=== PATIENT | male | born 1955 | race Caucasian/White ===

== ENCOUNTER 2023-10-12 15:41 | Inpatient (IN) | payer MEDICARE ==
[~2023-10-12] VITALS: Ht 188 cm; Wt 108.0 kg
[2023-10-12 20:00] VITALS: BP 133/82
[2023-10-12] MEDS ORDERED: LORazepam 1 MG TAB PO PRN (22:15)
[2023-10-12] MEDS ORDERED: Water, Sterile 10 ML VIAL IM PRN (22:15)
[2023-10-12] MEDS ORDERED: Ziprasidone Mesylate 20 MG VIAL IM PRN (22:15)
[2023-10-12] MEDS ORDERED: LORazepam 2 MG/ML VIAL IM PRN (22:15)
[2023-10-12] MEDS ORDERED: hydrOXYzine hydrochloride 50 MG/ML VIAL IM PRN (22:20)
[2023-10-12] MEDS ORDERED: hydrOXYzine pamoate 25 MG CAP PO PRN (22:20)
[2023-10-12] MEDS ORDERED: VITAMIN D31250 MC2 PO (22:22)
[2023-10-12] MEDS ORDERED: MUCINEX ER600 MG PO (22:26)
[2023-10-12] MEDS ORDERED: Ipratropium Brom3 ML INH (22:28)
[2023-10-12] MEDS ORDERED: LASIX80 MG PO (22:29)
[2023-10-12] MEDS ORDERED: Metolazone5 MG PO (22:32)
[2023-10-12] MEDS ORDERED: MIRALAX POWDER17 G1 PO (22:33)
[2023-10-12] MEDS ORDERED: POTASSIUM CHLO10 ME5 PO (22:37)
[2023-10-12] MEDS ORDERED: SENNA-PLUS TAB1 EACH PO (22:37)
[2023-10-12] MEDS ORDERED: HALOPERIDOL5 MG PO (22:38)
[2023-10-12] MEDS ORDERED: LIPITOR20 MG PO (22:39)
[2023-10-12] MEDS ORDERED: ARTIFICIAL TEAR30 M4 OP (22:41)
[2023-10-12] MEDS ORDERED: ACETAMINOPHEN 325 MG TAB PO PRN (23:20)
[2023-10-12] MEDS ORDERED: Magnesium Hydroxide 30 ML UDC PO PRN (23:20)
[2023-10-12] MEDS ORDERED: MG-AL HYDROXIDE/SIMETICONE 30 ML UDC PO PRN (23:20)
[2023-10-12] MEDS ORDERED: NICOTINE POLACRILEX 4 MG GUM PO PRN (23:25)
[2023-10-12] MEDS ORDERED: Menthol/Zinc Oxide 4 GM THIN T PRN (23:25)
[2023-10-13] MEDS ORDERED: Polyethylene Glycol 15 ML BOT OPH PRN (07:00)
[2023-10-13] MEDS ORDERED: Albuterol Sulf/Ipratropium 3 ML VIAL NEB PRN (07:00)
[2023-10-13 07:31] LABS: BASO % 0.4 % (0.0-1.0); EOS # 0.2 10*3/uL (0.0-0.4); EOS % 3.2 % (1.0-4.0); HEMATOCRIT 38.7 % (42.0-52.0); LYMPH # 1.3 10*3/uL (1.3-4.4); LYMPH % 17.7 % (27.0-41.0); MEAN CELL VOLUME 99.2 fl (80.0-94.0); MEAN CORPUSCULAR HGB 33.6 pg (27.0-31.0); MEAN CORPUSCULAR HGB CONC 33.9 g/dl (33.0-37.0); MEAN PLATELET VOLUME 10.4 fl (9.6-12.3); MONO # 0.8 10*3/uL (0.1-1.0); MONO % 11.6 % (3.0-9.0); NEUT # 4.8 10*3/uL (2.3-7.9); NEUT % 66.7 % (47.0-73.0); PLATELET COUNT AUTOMATED 215 10*3/uL (130-400); RED CELL DISTRI WIDTH 13.8 % (0-14.5); WHITE BLOOD COUNT 7.2 10*3/uL (4.8-10.8)
[2023-10-13 07:49] VITALS: BP 120/60
[2023-10-13] MEDS ORDERED: FUROSEMIDE 40 MG TAB PO SCH (09:00)
[2023-10-13] MEDS ORDERED: BENZTROPINE MESYLATE 1 MG TAB PO SCH (09:00)
[2023-10-13] MEDS ORDERED: RISPERIDONE 1 MG TAB PO SCH (09:00)
[2023-10-13] MEDS ORDERED: HALOPERIDOL 5 MG TAB PO SCH (09:00)
[2023-10-13] MEDS ORDERED: Vitamin D 1,000 IU TAB (25 MCG) PO SCH (09:00)
[2023-10-13] MEDS ORDERED: GUAIFENESIN 600 MG TAB ER PO SCH (09:00)
[2023-10-13] MEDS ORDERED: DIVALPROEX SODIUM 125 MG CAP PO SCH (09:00)
[2023-10-13] MEDS ORDERED: METOLAZONE 5 MG TAB PO SCH (09:00)
[2023-10-13 09:32] LABS: VITAMIN D, 25-HYDROXY 57.5 ng/mL (30-100)
[2023-10-13] MEDS ORDERED: POTASSIUM CHLORIDE 20 MEQ TAB PO SCH (10:00)
[2023-10-13 10:12] LABS: ALKALINE PHOSPHATASE 59 U/L (46-116); BUN 16 mg/dl (9-23); CHLORIDE 104 mmol/L (98-107); CHOLESTEROL 179 mg/dL (<200); LDL CHOLESTEROL 98 mg/dL (9-159); POTASSIUM 3.8 mmol/L (3.4-5.1); SGPT/ALT 7 U/L (5-49); TOTAL PROTEIN 6.2 gm/dL (6.0-8.0); TRIGLYCERIDES 70 mg/dl (<150); VALPROIC ACID (DEPAKENE) 7.9 ug/ml (50-100)
[2023-10-13] MEDS ORDERED: NYSTATIN 15 GM BOT T PRN (14:40)
[2023-10-13 19:19] VITALS: BP 122/77
[2023-10-13] MEDS ORDERED: ATORVASTATIN CALCIUM 20 MG TAB PO SCH (21:00)
[2023-10-14 08:00] VITALS: BP 129/89
[2023-10-14] MEDS ORDERED: VITAMIN E 400 IU CAP PO SCH (09:00)
[2023-10-14 19:26] VITALS: BP 102/57
[2023-10-14] MEDS ORDERED: LORazepam 1 MG TAB PO SCH (21:00)
[2023-10-15 08:00] VITALS: BP 90/62
[2023-10-15] MEDS ORDERED: HALOPERIDOL DECANOATE 50 MG/ML AMP IM ONE (10:05)
[2023-10-15] MEDS ORDERED: HALOPERIDOL DECANOATE 100 MG/ML AMP IM ONE (10:15)
[2023-10-15 13:31] VITALS: BP 122/64
[2023-10-15 20:00] VITALS: BP 113/65
[2023-10-16 08:29] VITALS: BP 120/84
[2023-10-16 20:00] VITALS: BP 120/78
[2023-10-16] MEDS ORDERED: Menthol/Zinc Oxide 4 GM THIN T SCH (21:00)
[2023-10-16] MEDS ORDERED: RAMELTEON 8 MG TAB PO SCH (21:00)
[2023-10-17 09:00] VITALS: BP 127/68
[2023-10-17 20:00] VITALS: BP 112/54
[2023-10-18 08:00] VITALS: BP 136/60
[2023-10-18] MEDS ORDERED: HALOPERIDOL DECANOATE 100 MG/ML AMP IM ONE (10:00)
[2023-10-18] MEDS ORDERED: HALOPERIDOL DECANOATE 50 MG/ML AMP IM ONE (10:20)
[2023-10-18 19:27] VITALS: BP 113/61
[2023-10-18] MEDS ORDERED: Magnesium Hydroxide 30 ML UDC PO SCH (22:00)
[2023-10-19 07:07] VITALS: BP 114/59
[2023-10-19 20:00] VITALS: BP 117/70
[2023-10-19] MEDS ORDERED: RAMELTEON 8 MG TAB PO SCH (21:00)
[2023-10-20 08:30] VITALS: BP 104/68
[2023-10-20 14:43] LABS: BILIRUBIN Negative (Negative); BLOOD Trace-Intact (Negative); CLARITY Clear (Clear); COLOR Yellow (Yellow); GLUCOSE Negative (Negative); KETONE Negative (Negative); LEUKO ESTERASE Negative (Negative); NITRITE Negative (Negative); UROBILINOGEN 0.2 E.U./dl (0.0-1.0)
[2023-10-20 15:13] LABS: BACTERIA TRACE; WBC 0-2 wbc/hpf (0-5)
[2023-10-20 20:00] VITALS: BP 98/61
[2023-10-21 08:00] VITALS: BP 117/68
[2023-10-21] MEDS ORDERED: CITALOPRAM 20 MG TAB PO SCH (09:50)
[2023-10-21 19:09] VITALS: BP 125/96
[2023-10-22 08:00] VITALS: BP 122/65
[2023-10-22 20:00] VITALS: BP 118/67
[2023-10-22] MEDS ORDERED: Trihexyphenidyl Hydrochlorid 2 MG TAB PO SCH (21:00)
[2023-10-23 07:45] VITALS: BP 111/60
[2023-10-23 20:00] VITALS: BP 125/72
[2023-10-24] MEDS ORDERED: HALOPERIDO100 MG/11 IM (06:52)
[2023-10-24] MEDS ORDERED: DIVALPROEX SOD125 M1 PO (06:52)
[2023-10-24] MEDS ORDERED: CITALOPRAM20 MG PO (06:52)
[2023-10-24] MEDS ORDERED: TRIHEXYPHENIDYL2 M3 PO (06:52)
[2023-10-24] MEDS ORDERED: RAMELTEON8 MG PO (06:52)
[2023-10-24 08:00] VITALS: BP 104/64
[2023-11-13] MEDS ORDERED: HALOPERIDOL DECANOATE 100 MG/ML AMP IM SCH (09:00)
== END 2023-10-24 12:59 | DRG 883 ==
LOC: 3N 15:41
PROVIDERS: ADMIT Psychiatry & Neurology Psychiatry; ATTEND Psychiatry & Neurology Psychiatry
PROC: GZHZZZZ Group Psychotherapy (ICD-10-PCS; principal; 2023-10-12)
PROC: GZ51ZZZ Individual Psychotherapy, Behavioral (ICD-10-PCS; 2023-10-12)
PROC: 0HBRXZZ Excision of Toe Nail, External Approach (ICD-10-PCS; 2023-10-19)
PROC: 0HBRXZZ Excision of Toe Nail, External Approach (ICD-10-PCS; 2023-10-19)
PROC: 0HBRXZZ Excision of Toe Nail, External Approach (ICD-10-PCS; 2023-10-19)
PROC: 0HBRXZZ Excision of Toe Nail, External Approach (ICD-10-PCS; 2023-10-19)
PROC: 0HBRXZZ Excision of Toe Nail, External Approach (ICD-10-PCS; 2023-10-19)
PROC: 0HBRXZZ Excision of Toe Nail, External Approach (ICD-10-PCS; 2023-10-19)
PROC: 0HBRXZZ Excision of Toe Nail, External Approach (ICD-10-PCS; 2023-10-19)
PROC: 0HBRXZZ Excision of Toe Nail, External Approach (ICD-10-PCS; 2023-10-19)
PROC: 0HBRXZZ Excision of Toe Nail, External Approach (ICD-10-PCS; 2023-10-19)
PROC: 0HBRXZZ Excision of Toe Nail, External Approach (ICD-10-PCS; 2023-10-19)
DX: F63.81 Intermittent explosive disorder (principal); E11.65 Type 2 diabetes mellitus with hyperglycemia; F23 Brief psychotic disorder; E44.0 Moderate protein-calorie malnutrition; Z66 Do not resuscitate; D53.9 Nutritional anemia, unspecified; J44.9 Chronic obstructive pulmonary disease, unspecified; I10 Essential (primary) hypertension; E78.5 Hyperlipidemia, unspecified; F25.0 Schizoaffective disorder, bipolar type; B35.1 Tinea unguium; Z88.0 Allergy status to penicillin; Z88.8 Allergy status to other drugs, medicaments and biological substances; Z79.899 Other long term (current) drug therapy; Z51.5 Encounter for palliative care